=== PATIENT | male | born 1965 | race American Indian/Alaskan Native ===

== ENCOUNTER 2021-06-23 09:51 | Emergency (ER) | payer OTHER ==
[2021-06-23 14:04] VITALS: BP 151/82
== END 2021-06-23 16:30 | disposition home or self-care (01) ==
LOC: ED 09:51
DX: J18.9 Pneumonia, unspecified organism (principal); R06.6 Hiccough; E11.8 Type 2 diabetes mellitus with unspecified complications
CPT/HCPCS: 36415; 71046; 80053; 82962; 83690; 84484; 85007; 85025; 93005; 99283; 99284